=== PATIENT | male | born 1980 | race Caucasian/White ===

== ENCOUNTER 2020-02-10 21:07 | Inpatient (IN) | payer OTHER, SELFPAY ==
[2020-02-10 21:31] VITALS: BMI 36.2
[2020-02-10] MEDS: clonazePAM 1 MG TABLET PO (22:22)
[2020-02-10] MEDS: Ziprasidone 80 MG CAPSULE 160 MG PO (23:14)
[2020-02-10] MEDS: OLANZapine 5 MG TABLET PO (23:16)
[2020-02-11] MEDS: OLANZapine 5 MG TABLET PO (00:01)
[2020-02-11 06:05] VITALS: BP 130/81; PULSE 100; RESP 18; TEMP 35.9; O2SAT 97
[2020-02-11] MEDS: oxyCODONE HCl Immed Release 5 MG TABLET 10 MG PO ×2 (06:23→14:11)
[2020-02-11] MEDS: Acetaminophen 325 MG TABLET 650 MG PO ×2 (06:23→14:11)
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
[2020-02-11 07:00] VITALS: BMI 36.1
[2020-02-11 08:25] LABS: MANUAL DIFF FLAG NO
[2020-02-11 08:31] LABS: Basophils Percent Auto 0.2 % (0-2); Eosinophils Absolute Auto 0.4 X10*3/uL (0.0-0.4); Eosinophils Percent Auto 5.1 % (0-4); Hematocrit 40.7 % (42-52); Hemoglobin 14.6 g/dl (14.0-18.0); Imm Gran Abs Auto 0.02 X10*3/uL (0.00-0.03); Imm Gran Pct Auto 0.2 % (0.0-0.4); Lymphocytes Absolute Auto 2.9 X10*3/uL (1.2-4.9); Lymphocytes Percent Auto 34.8 % (20-40); Mean Corpuscular HGB Conc 35.9 g/dl (31.0-36.0); Mean Corpuscular Hemoglobin 30.6 pg (27.0-33.0); Mean Corpuscular Volume 85.3 fL (80-98); Mean Platelet Volume 9.7 fL (9.4-12.4); Monocytes Absolute Auto 0.8 X10*3/uL (0.1-1.2); Monocytes Percent Auto 8.9 % (2-11); Neutrophils Absolute Auto 4.3 X10*3/uL (2.0-8.3); Neutrophils Percent Auto 50.8 % (45-73); Platelet Count 251 X10*3/uL (160-400); Red Blood Count 4.77 X10*6/uL (4.60-5.80); Red Cell Distribution Width 12.2 % (11.0-16.0); White Blood Count 8.4 X10*3/uL (4.8-10.8)
[2020-02-11 08:56] LABS: Alanine Aminotransferase 37 U/L (0-40); Albumin Level 4.2 g/dL (3.5-5.0); Alkaline Phosphatase 50 U/L (39-117); Anion Gap 14 (12-20); Aspartate Amino Transferase 17 U/L (5-37); Bilirubin Total 0.5 mg/dL (0.0-1.0); Blood Urea Nitrogen 12 mg/dL (9-16); Calcium 8.9 mg/dL (8.4-10.2); Carbon Dioxide 25 mmol/L (22-29); Chloride 106 mmol/L (96-108); Cholesterol 156 mg/dL; Creatinine Clr Calc Pharmacy 166.5; Estimated Glomerular Filt Rate > 60; Glucose Fasting 102 mg/dL (60-99); HDL Cholesterol 29 mg/dL; LDL Cholesterol Calculated 65 mg/dl; Potassium 4.5 mmol/l (3.3-5.1); Sodium 140 mmol/L (135-145); Total Protein 6.9 g/dL (6.5-8.0); Triglycerides 310 mg/dL
[2020-02-11] MEDS: clonazePAM 1 MG TABLET PO ×3 (09:05→22:46)
[2020-02-11] MEDS: Nicotine 14 MG PATCH.TD24 TRANSDERMA (09:06)
--- NOTE | 2020-02-11 10:00 | ECG_ITS ---
Test Reason : QTC PROLONGATION Blood Pressure : / mmHG Vent. Rate : 081 BPM Atrial Rate : 081 BPM P-R Int : 168 ms QRS Dur : 090 ms QT Int : 358 ms P-R-T Axes : 027 063 015 degrees QTc Int : 415 ms Normal sinus rhythm Normal ECG No previous ECGs available Referred By: Francesco Pan Electronically Signed By:IRISH BARBA MD
[2020-02-11] MEDS: Lithium Carbonate ER 450 MG TABLET.ER PO ×2 (11:34→23:00)
--- NOTE | 2020-02-11 13:44 | P.CONIM_ITS ---
History of Present Illness Data of Consult Service Date: 02/11/20 Requesting physician: Elizabeth Healy Primary Care Provider: Unknown Physician HPI Reason for consult: direct admit from [facility] this is a 40-year-old male with history of bipolar disorder who was admitted from [facility] due to increasing manic symptoms. The hospitalists were asked to see him for routine consultation. He has self- reported fibromyalgia, rheumatoid arthritis, ankylosing spondylitis, de generative disc disease and associated widespread chronic pain. He is unhappy with his PCPs management of his chronic pain. he is hoping to switch PCPs. He is hoping to have his narcotic dose increased. He has no other specific complaints. Review of Systems Review of Systems: Yes all other systems are reviewed and are negative Constitutional: Constitutional: Denies chills and Denies fever(s) Cardiovascular: Cardiovascular: Denies chest pain Respiratory: Respiratory: Denies cough Gastrointestinal: Gastrointestinal: Denies abdominal pain [facility] Medical History (Updated 02/11/20 @ 13:50 by SHAHID Vasques) Alcohol use disorder, moderate, in sustained remission Bipolar disorder Chronic back pain History of femur fracture Functional capacity: independent ambulation Pertinent family history: denies CAD, stroke Surgical History (Updated 02/11/20 @ 13:50 by SHAHID Vasques) H/O shoulder surgery Social History (Updated 02/11/20 @ 13:50 by SHAHID Vasques) Household Members: Spouse and Children Housing: Apartment Do you presently have visiting nurse or other home services: No Alcohol intake: former Smoking Status: Current every day smoker Tobacco Type: Cigarette Packs Per Day: 1 Cigarettes Per Day: 20.0 Smoked in Last 30 Days: Yes Patient Interested in Nicotine Replacement: Yes Patient Given Instructions on How to Stop Smoking: Yes Date Education Initiated: 02/10/20 Second Hand Smoke Exposure: No Use of substances other than those prescribed or required for medical reasons: No Currently Displaying Signs/Symptoms of Drug Intoxication Withdrawal: No Have you been hit, kicked, punched, or otherwise hurt by someone within the past year? If so, by whom?: No Do you feel safe in your current relationship?: Yes Is there a partner from a previous relationship who is making you feel unsafe now?: No Are you made to feel afraid or neglected: No Advance Directives: No Advance Directives Information Provided: Yes Advance Directives on File: No Do you have thoughts of harming others: None Do you have a plan to hurt others: No Plan Recently lost weight without trying: No Meds Allergies Allergy/AdvReac Type Severity Reaction Status Date / Time No Known Allergies Allergy Verified 02/10/20 21:33 Home Medications Medication Instructions Recorded Confirmed Type clonazepam 1 mg PO TID 02/10/20 02/10/20 History fenofibrate nanocrystallized 145 mg PO DAILY 02/10/20 02/10/20 History oxycodone 10 mg PO BID PRN 02/10/20 02/10/20 History ziprasidone HCl [Geodon] 160 mg PO BEDTIME 02/10/20 02/10/20 History Physical Exam Vital Signs and Narrative: Vital Signs: Last Vital Signs Temp 96.7 F L 02/11/20 06:05 Pulse 100 02/11/20 06:05 Resp 18 02/11/20 06:05 BP 130/81 02/11/20 06:05 Pulse Ox 97 02/11/20 06:05 Body Mass Index 36.1 Const: Nutritional Appearance: well nourished Orientation/consciousness: patient oriented x3 HENMT: Head: Yes normocephalic and Yes atraumatic Eyes: Sclerae: sclerae normal Chest: Chest palpation & inspection: normal inspection of the chest Resp: Effort & Inspection: normal respiratory effort and no respiratory distress Auscultation: clear to auscultation bilaterally Cardio: Rate: regular rate Rhythm: regular rhythm GI: Palpation (GI): Soft to palpation and nontender Skin: General skin exam: no rashes or lesions noted Neuro: General: patient oriented x3 Cranial nerves: Yes CN's II-XII intact bilaterally and Yes Bilaterally intact EOM present Extrem: General: Yes normal to inspection Results Labs CBC and Chem 7: 02/11/20 08:01 02/11/20 08:01 Labs: Laboratory Results - last 24 hr 02/11/20 02/11/20 08:01 08:01 MCV 85.3 MCH 30.6 MCHC 35.9 RDW 12.2 Plt Count 251 MPV 9.7 Immature Gran % (Auto) 0.2 Neut % (Auto) 50.8 Lymph % (Auto) 34.8 [place] % (Auto) 8.9 Eos % (Auto) 5.1 H Baso % (Auto) 0.2 Lymph # (Auto) 2.9 [place] # (Auto) 0.8 Eos # (Auto) 0.4 Baso # (Auto) 0.0 Abs Immat Gran (auto) 0.02 Absolute Neuts (auto) 4.3 Absolute Nucleated RBC 0.000 Nucleated RBC % (auto) 0.0 Anion Gap 14 Estim Creat Clear Calc 166.5 Estimated GFR > 60 Fasting Glucose 102 H Calcium 8.9 Total Bilirubin 0.5 AST 17 ALT 37 Alkaline Phosphatase 50 Total Protein 6.9 Albumin 4.2 Triglycerides 310 Cholesterol 156 LDL Cholesterol, Calc 65 HDL Cholesterol 29 TSH 2.20 Assessment and Plan (1) Bipolar I disorder with stan: Status: Acute this is a 40-year-old male with history of bipolar disorder admitted to for management of increasing stan HLD Patient reports outpatient lipid profile had improved and PCP discontinued fenofibrate chronic pain continue home dose of oxycodone there are no acute medical conditions at this time. Thank you for allowing us to participate in the care of this patient. this case was discussed with Dr. Reveles
[2020-02-11 18:00] VITALS: BP 166/86; PULSE 99; TEMP 36.1
[2020-02-11] MEDS: Ziprasidone 80 MG CAPSULE 160 MG PO (23:00)
[2020-02-12] MEDS: oxyCODONE HCl Immed Release 5 MG TABLET 10 MG PO ×2 (04:40→12:07)
[2020-02-12] MEDS: Acetaminophen 325 MG TABLET 650 MG PO ×2 (04:43→12:07)
[2020-02-12 05:00] VITALS: BP 149/69; PULSE 96; RESP 18; TEMP 36.6; O2SAT 97
[2020-02-12] MEDS: Nicotine Polacrilex 2 MG GUM 4 MG BUCCAL (05:29)
--- NOTE | 2020-02-12 06:21 | P.PNPSI_ITS ---
Subjective Subjective Date of Service: 02/12/20 Reason For Visit: Bipolar Subjective Notes: Conditional Voluntary Interim History: Remains hypomanic. High energy. Talkative. Some talk but in beh control and med compliant. Ct [employer] Loading. Overoptimistic meds are working great Medication Compliance: Yes Side effects from medications: No Attending Groups: Yes Review of Systems Review of Systems Yes all other systems are reviewed and are negative Mental Status Exam Mental Status Exam Patient Appearance: Appropriate Patient Orientation: Person, Place, Time and Situation Level of Consciousness: Awake Patient Behavior: Talkative, Cooperative and Restless Mood Description: Elated Affect Description: Hostile, Anxious and Expansive Ability to Follow Directions: Excellent Speech Pattern: Rambling and Pressured Memory Description: Intact Diagnostics Vital Signs (24Hr): Vital Signs - 24 hr 02/11/20 18:00 Temperature 96.9 F Pulse Rate 99 Blood Pressure 166/86 H Body Mass Index 36.1 Labs Results: 02/11/20 08:01 02/11/20 08:01 Labs: Laboratory Results - last 48 hr 02/11/20 02/11/20 08:01 08:01 WBC 8.4 RBC 4.77 Hgb 14.6 Hct 40.7 L MCV 85.3 MCH 30.6 MCHC 35.9 RDW 12.2 Plt Count 251 MPV 9.7 Immature Gran % (Auto) 0.2 Neut % (Auto) 50.8 Lymph % (Auto) 34.8 [place] % (Auto) 8.9 Eos % (Auto) 5.1 H Baso % (Auto) 0.2 Lymph # (Auto) 2.9 [place] # (Auto) 0.8 Eos # (Auto) 0.4 Baso # (Auto) 0.0 Abs Immat Gran (auto) 0.02 Absolute Neuts (auto) 4.3 Absolute Nucleated RBC 0.000 Nucleated RBC % (auto) 0.0 Sodium 140 Potassium 4.5 Chloride 106 Carbon Dioxide 25 Anion Gap 14 BUN 12 Creatinine 0.74 Estim Creat Clear Calc 166.5 Estimated GFR > 60 Fasting Glucose 102 H Calcium 8.9 Total Bilirubin 0.5 AST 17 ALT 37 Alkaline Phosphatase 50 Total Protein 6.9 Albumin 4.2 Triglycerides 310 Cholesterol 156 LDL Cholesterol, Calc 65 HDL Cholesterol 29 TSH 2.20 Medications Medications Current Medications Generic Name Dose Route Start Last Admin Trade Name Freq PRN Reason Stop Dose Admin Acetaminophen 650 mg 02/10/20 21:44 02/12/20 04:43 Acetaminophen 325 Mg Tablet PO 650 mg Q6H PRN Administration Headache/Pain Mild Scale (1-3) Al Hydroxide/Mg Hydroxide 30 ml 02/10/20 21:44 Magnesium Hydrox/Alum Hydrox 30 Ml Oral.Susp PO Q6H PRN Heartburn/Nausea Clonazepam 1 mg 02/10/20 21:55 02/11/20 22:46 Clonazepam 1 Mg Tablet PO 1 mg TID ANGELICA Administration Fenofibrate 134 mg 02/10/20 22:05 02/11/20 23:03 Fenofibrate,Micronized 134 Mg Capsule PO Not Given BEDTIME ANGELICA Hydroxyzine HCl 25 mg 02/10/20 21:54 Hydroxyzine Hcl 25 Mg Tablet PO BEDTIME MRX1 PRN Insomnia [employer] Carbonate 450 mg 02/11/20 10:40 02/11/20 23:00 [employer] Carbonate Er 450 Mg Tablet.Er PO 450 mg BID ANGELICA Administration Magnesium Hydroxide 30 ml 02/10/20 21:44 Milk Of Magnesia 30 Ml Oral.Susp PO DAILY PRN Constipation Nicotine 14 mg 02/11/20 09:00 02/11/20 09:06 Nicotine 14 Mg Patch.Td24 TRANSDERMA 14 mg DAILY ANGELICA Administration Nicotine Polacrilex 4 mg 02/10/20 21:44 02/12/20 05:29 Nicotine Polacrilex 2 Mg Gum BUCCAL 4 mg Q2H PRN Administration Nicotine Cravings Olanzapine 5 mg 02/10/20 22:01 02/11/20 00:01 Olanzapine 5 Mg Tablet PO 5 mg BEDTIME MRX1 PRN Administration insomnia Oxycodone HCl 10 mg 02/10/20 21:50 02/12/20 04:40 Oxycodone Hcl Immed Release 5 Mg Tablet PO 10 mg BID PRN Administration Pain Ziprasidone 160 mg 02/10/20 21:55 02/11/20 23:00 Ziprasidone 80 Mg Capsule PO 160 mg BEDTIME ANGELICA Administration Allergies Allergies Allergy/AdvReac Type Severity Reaction Status Date / Time No Known Allergies Allergy Verified 02/10/20 21:33 Assessment & Plan Assessment & Plan (1) Bipolar I disorder with stan: Status: Acute Code(s): F31.10 - Bipolar disorder, current episode manic without psychotic features, u nspecified Assessment and Plan: this is a 40-year-old male with history of bipolar disorder admitted to M5 for management of increasing stan HLD Patient reports outpatient lipid profile had improved and PCP discontinued fenofibrate chronic pain continue home dose of oxycodone there are no acute medical conditions at this time. Thank you for allowing us to participate in the care of this patient. this case was discussed with Dr. Reveles Greater than 50% of the session was spent on counseling and/or coordination of care Ct meds. [employer]/Geodon
[2020-02-12] MEDS: Lithium Carbonate ER 450 MG TABLET.ER PO ×2 (08:29→22:00)
[2020-02-12] MEDS: Nicotine 14 MG PATCH.TD24 TRANSDERMA (08:29)
[2020-02-12] MEDS: clonazePAM 1 MG TABLET PO ×3 (08:29→20:54)
[2020-02-12 18:00] VITALS: BP 119/59; PULSE 92; TEMP 36.9
[2020-02-12] MEDS: Ziprasidone 80 MG CAPSULE 160 MG PO (22:00)
[2020-02-12] MEDS: OLANZapine 5 MG TABLET PO (23:14)
[2020-02-13] MEDS: oxyCODONE HCl Immed Release 5 MG TABLET 10 MG PO ×2 (00:33→08:46)
[2020-02-13] MEDS: Acetaminophen 325 MG TABLET 650 MG PO ×3 (00:35→22:07)
[2020-02-13 06:00] VITALS: BP 130/73; PULSE 104; TEMP 36.2; O2SAT 98
[2020-02-13] MEDS: clonazePAM 1 MG TABLET PO ×3 (08:22→20:41)
[2020-02-13] MEDS: Nicotine 14 MG PATCH.TD24 TRANSDERMA (08:22)
[2020-02-13] MEDS: Lithium Carbonate ER 450 MG TABLET.ER PO ×2 (10:25→22:08)
--- NOTE | 2020-02-13 10:53 | P.PNPSI_ITS ---
Subjective Subjective Date of Service: 02/13/20 Reason For Visit: Bipolar Subjective Notes: Conditional Voluntary Interim History: Pt reports continued problem with waking up from sleep due to back pain upset about only having 2 doses per day / oxy Medication Compliance: Yes Side effects from medications: No Attending Groups: Yes Review of Systems Acute medical concerns: Yes ongoing back pain =- chronic Medical Review of Systems: unchanged Review of Systems Constitutional: Reports no additional constitutional complaints Mental Status Exam Mental Status Exam Patient Appearance: Well Grooomed and Appropriate Patient Orientation: Person, Place, Time and Situation Level of Consciousness: Awake Patient Behavior: Appropriate Behavior Comments: some iriritability , yells when annoyed in room, upset about level of agita on unit and feeling mad that he is still on unit when he could have been home. Mood Description: Angry (some irritability ) Affect Description: Labile (mildly) Patient Cognition Impaired: No Ability to Follow Directions: Good Speech Pattern: Clear Memory Description: Intact Hallucinations: None Thought Process: Intact and Goal Oriented Thought Content: positive for Intact Abnormal Motor Activity Signs and Symptoms: Agitation (mild) Judgement: Fair Diagnostics Vital Signs (24Hr): Vital Signs - 24 hr 02/12/20 18:00 02/13/20 06:00 Temperature 98.4 F 97.1 F Pulse Rate 92 104 H Blood Pressure 119/59 L 130/73 Pulse Oximetry 98 Body Mass Index 36.1 Labs Results: 02/11/20 08:01 02/11/20 08:01 Medications Medications Current Medications Generic Name Dose Route Start Last Admin Trade Name Freq PRN Reason Stop Dose Admin Acetaminophen 650 mg 02/10/20 21:44 02/13/20 08:46 Acetaminophen 325 Mg Tablet PO 650 mg Q6H PRN Administration Headache/Pain Mild Scale (1-3) Al Hydroxide/Mg Hydroxide 30 ml 02/10/20 21:44 Magnesium Hydrox/Alum Hydrox 30 Ml Oral.Susp PO Q6H PRN Heartburn/Nausea Clonazepam 1 mg 02/10/20 21:55 02/13/20 08:22 Clonazepam 1 Mg Tablet PO 1 mg TID ANGELICA Administration Fenofibrate 134 mg 02/10/20 22:05 02/12/20 22:02 Fenofibrate,Micronized 134 Mg Capsule PO Not Given BEDTIME ANGELICA Hydroxyzine HCl 25 mg 02/10/20 21:54 Hydroxyzine Hcl 25 Mg Tablet PO BEDTIME MRX1 PRN Insomnia [place] Carbonate 450 mg 02/11/20 10:40 02/13/20 10:25 [place] Carbonate Er 450 Mg Tablet.Er PO 450 mg BID ANGELICA Administration Magnesium Hydroxide 30 ml 02/10/20 21:44 Milk Of Magnesia 30 Ml Oral.Susp PO DAILY PRN Constipation Nicotine 14 mg 02/11/20 09:00 02/13/20 08:22 Nicotine 14 Mg Patch.Td24 TRANSDERMA 14 mg DAILY ANGELICA Administration Nicotine Polacrilex 4 mg 02/10/20 21:44 02/12/20 05:29 Nicotine Polacrilex 2 Mg Gum BUCCAL 4 mg Q2H PRN Administration Nicotine Cravings Olanzapine 5 mg 02/10/20 22:01 02/12/20 23:14 Olanzapine 5 Mg Tablet PO 5 mg BEDTIME MRX1 PRN Administration insomnia Oxycodone HCl 10 mg 02/10/20 21:50 02/13/20 08:46 Oxycodone Hcl Immed Release 5 Mg Tablet PO 10 mg BID PRN Administration Pain Ziprasidone 160 mg 02/10/20 21:55 02/12/20 22:00 Ziprasidone 80 Mg Capsule PO 160 mg BEDTIME ANGELICA Administration Allergies Allergies Allergy/AdvReac Type Severity Reaction Status Date / Time No Known Allergies Allergy Verified 02/10/20 21:33 Assessment & Plan Assessment & Plan (1) Alcohol use disorder, moderate, in sustained remission: Status: Acute Code(s): F10.21 - Alcohol dependence, in remission Assessment and Plan: continues on clonazepam (2) Bipolar I disorder with stan: Status: Acute Code(s): F31.10 - Bipolar disorder, current episode manic without psychotic features, unspecified Assessment and Plan: feels current medications are helping well with this Greater than 50% of the session was spent on counseling and/or coordination of care
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
[2020-02-13 18:00] VITALS: BP 146/66; PULSE 102; TEMP 36.7
[2020-02-13] MEDS: Ziprasidone 80 MG CAPSULE 160 MG PO (22:08)
[2020-02-14] MEDS: oxyCODONE HCl Immed Release 5 MG TABLET 10 MG PO ×2 (00:38→08:37)
[2020-02-14 06:00] VITALS: BP 136/64; PULSE 103; TEMP 36.6
[2020-02-14] MEDS: clonazePAM 1 MG TABLET PO ×3 (07:04→20:20)
[2020-02-14] MEDS: Nicotine 14 MG PATCH.TD24 TRANSDERMA (07:04)
[2020-02-14 08:20] LABS: Lithium 0.39 mmol/L (0.60-1.20)
[2020-02-14] MEDS: Acetaminophen 325 MG TABLET 650 MG PO (08:36)
[2020-02-14] MEDS: Lithium Carbonate ER 450 MG TABLET.ER PO (11:17)
--- NOTE | 2020-02-14 11:34 | P.PNPSI_ITS ---
Subjective Subjective Date of Service: 02/14/20 Reason For Visit: Bipolar Subjective Notes: Conditional Voluntary Interim History: Pt feels great despite blow up yesterday about another pt who is staring at him feels he is on right meds and doing what he is being told looking to dc tomorrow ongoing complaint of back pain Medication Compliance: Yes Side effects from medications: No Attending Groups: Yes Review of Systems Acute medical concerns: No Medical Review of Systems: unchanged Review of Systems: ongoing back pain - chronic not new Mental Status Exam Mental Status Exam Patient Appearance: Well Grooomed and Appropriate Patient Orientation: Person, Place, Time and Situation Level of Consciousness: Awake Patient Behavior: Appropriate Behavior Comments: some iriritability , yells when annoyed in room, upset about level of agita on unit and feeling mad that he is still on unit when he could have been home. Mood Description: Angry (some irritability ) Affect Description: Labile (mildly) Patient Cognition Impaired: No Ability to Follow Directions: Good Speech Pattern: Clear Memory Description: Intact Hallucinations: None Thought Process: Intact and Goal Oriented Thought Content: positive for Intact Abnormal Motor Activity Signs and Symptoms: Agitation (mild) Judgement: Fair Diagnostics Vital Signs (24Hr): Vital Signs - 24 hr 02/13/20 18:00 02/14/20 06:00 Temperature 98.1 F 97.8 F Pulse Rate 102 H 103 H Blood Pressure 146/66 H 136/64 Body Mass Index 36.1 Labs Results: 02/11/20 08:01 02/11/20 08:01 Labs: Laboratory Results - last 48 hr 02/14/20 07:56 [place] 0.39 L lithium lvl is low but just restarted - may need higher dose or may need to recheck lithium lvl on dc Medications Medications Current Medications Generic Name Dose Route Start Last Admin Trade Name Freq PRN Reason Stop Dose Admin Acetaminophen 650 mg 02/10/20 21:44 02/14/20 08:36 Acetaminophen 325 Mg Tablet PO 650 mg Q6H PRN Administration Headache/Pain Mild Scale (1-3) Al Hydroxide/Mg Hydroxide 30 ml 02/10/20 21:44 Magnesium Hydrox/Alum Hydrox 30 Ml Oral.Susp PO Q6H PRN Heartburn/Nausea Clonazepam 1 mg 02/10/20 21:55 02/14/20 07:04 Clonazepam 1 Mg Tablet PO 1 mg TID ANGELICA Administration Fenofibrate 134 mg 02/10/20 22:05 02/13/20 22:09 Fenofibrate,Micronized 134 Mg Capsule PO Not Given BEDTIME ANGELICA Hydroxyzine HCl 25 mg 02/10/20 21:54 Hydroxyzine Hcl 25 Mg Tablet PO BEDTIME MRX1 PRN Insomnia [place] Carbonate 450 mg 02/11/20 10:40 02/14/20 11:17 [place] Carbonate Er 450 Mg Tablet.Er PO 450 mg BID ANGELICA Administration Magnesium Hydroxide 30 ml 02/10/20 21:44 Milk Of Magnesia 30 Ml Oral.Susp PO DAILY PRN Constipation Nicotine 14 mg 02/11/20 09:00 02/14/20 07:04 Nicotine 14 Mg Patch.Td24 TRANSDERMA 14 mg DAILY ANGELICA Administration Nicotine Polacrilex 4 mg 02/10/20 21:44 02/12/20 05:29 Nicotine Polacrilex 2 Mg Gum BUCCAL 4 mg Q2H PRN Administration Nicotine Cravings Olanzapine 5 mg 02/10/20 22:01 02/12/20 23:14 Olanzapine 5 Mg Tablet PO 5 mg BEDTIME MRX1 PRN Administration insomnia Oxycodone HCl 10 mg 02/10/20 21:50 02/14/20 08:37 Oxycodone Hcl Immed Release 5 Mg Tablet PO 10 mg BID PRN Administration Pain Ziprasidone 160 mg 02/10/20 21:55 02/13/20 22:08 Ziprasidone 80 Mg Capsule PO 160 mg BEDTIME ANGELICA Administration Allergies Allergies Allergy/AdvReac Type Severity Reaction Status Date / Time No Known Allergies Allergy Verified 02/10/20 21:33 Assessment & Plan Assessment & Plan (1) Bipolar I disorder with stan: Status: Acute Code(s): F31.10 - Bipolar disorder, current episode manic without psychotic features, unspecified Assessment and Plan: more stable for most part, there have been alot of agitated patients on unit- feels certain patients don't like him- vs are having their own psychiatric problems Greater than 50% of the session was spent on counseling and/or coordination of care
[2020-02-14 18:00] VITALS: BP 142/73; PULSE 88
--- NOTE | 2020-02-14 23:37 | PC.NURSE ---
Patient decided he did not want to take his HS medications because he was asked to wait while other patients were given theirs. This magazine writer went to patient's room to offer meds and he refused them. He had taken his Clonopin early.
[2020-02-15] MEDS: Ziprasidone 80 MG CAPSULE 160 MG PO (00:32)
[2020-02-15] MEDS: Lithium Carbonate ER 450 MG TABLET.ER PO (00:33)
[2020-02-15] MEDS: oxyCODONE HCl Immed Release 5 MG TABLET 10 MG PO ×2 (00:34→08:57)
[2020-02-15] MEDS: Acetaminophen 325 MG TABLET 650 MG PO ×2 (01:24→08:56)
[2020-02-15 06:00] VITALS: BP 132/64; PULSE 86; TEMP 36.6
--- NOTE | 2020-02-15 06:43 | P.PNPSI_ITS ---
Subjective Subjective Date of Service: 02/15/20 Reason For Visit: Bipolar Diagnostics Vital Signs (24Hr): Vital Signs - 24 hr 02/14/20 18:00 Pulse Rate 88 Blood Pressure 142/73 H Body Mass Index 36.1 Labs Results: 02/11/20 08:01 02/11/20 08:01 Labs: Laboratory Results - last 48 hr 02/14/20 07:56 [place] 0.39 L Medications Medications Current Medications Generic Name Dose Route Start Last Admin Trade Name Freq PRN Reason Stop Dose Admin Acetaminophen 650 mg 02/10/20 21:44 02/15/20 01:24 Acetaminophen 325 Mg Tablet PO 650 mg Q6H PRN Administration Headache/Pain Mild Scale (1-3) Al Hydroxide/Mg Hydroxide 30 ml 02/10/20 21:44 Magnesium Hydrox/Alum Hydrox 30 Ml Oral.Susp PO Q6H PRN Heartburn/Nausea Clonazepam 1 mg 02/10/20 21:55 02/14/20 20:20 Clonazepam 1 Mg Tablet PO 1 mg TID ANGELICA Administration Fenofibrate 134 mg 02/10/20 22:05 02/14/20 22:56 Fenofibrate,Micronized 134 Mg Capsule PO Not Given BEDTIME ANGELICA Hydroxyzine HCl 25 mg 02/10/20 21:54 Hydroxyzine Hcl 25 Mg Tablet PO BEDTIME MRX1 PRN Insomnia [place] Carbonate 450 mg 02/11/20 10:40 02/15/20 00:33 [place] Carbonate Er 450 Mg Tablet.Er PO 450 mg BID ANGELICA Administration Magnesium Hydroxide 30 ml 02/10/20 21:44 Milk Of Magnesia 30 Ml Oral.Susp PO DAILY PRN Constipation Nicotine 14 mg 02/11/20 09:00 02/14/20 07:04 Nicotine 14 Mg Patch.Td24 TRANSDERMA 14 mg DAILY ANGELICA Administration Nicotine Polacrilex 4 mg 02/10/20 21:44 02/12/20 05:29 Nicotine Polacrilex 2 Mg Gum BUCCAL 4 mg Q2H PRN Administration Nicotine Cravings Olanzapine 5 mg 02/10/20 22:01 02/12/20 23:14 Olanzapine 5 Mg Tablet PO 5 mg BEDTIME MRX1 PRN Administration insomnia Oxycodone HCl 10 mg 02/10/20 21:50 02/15/20 00:34 Oxycodone Hcl Immed Release 5 Mg Tablet PO 10 mg BID PRN Administration Pain Ziprasidone 160 mg 02/10/20 21:55 02/15/20 00:32 Ziprasidone 80 Mg Capsule PO 160 mg BEDTIME ANGELICA Administration Allergies Allergies Allergy/AdvReac Type Severity Reaction Status Date / Time No Known Allergies Allergy Verified 02/10/20 21:33 Assessment & Plan Greater than 50% of the session was spent on counseling and/or coordination of care
[2020-02-15] MEDS: Nicotine 14 MG PATCH.TD24 TRANSDERMA (08:58)
[2020-02-15] MEDS: clonazePAM 1 MG TABLET PO (11:49)
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
== END 2020-02-15 15:50 | disposition home or self-care (01) | DRG 753 ==
PROVIDERS: Admitting Provider Psychiatry & Neurology Psychiatry; Visit Provider Psychiatry & Neurology Psychiatry
DX: F31.10 Bipolar disorder, current episode manic without psychotic features, unspecified (principal); R45.850 Homicidal ideations; F10.21 Alcohol dependence, in remission; F17.210 Nicotine dependence, cigarettes, uncomplicated; Z71.6 Tobacco abuse counseling; G89.29 Other chronic pain; M54.9 Dorsalgia, unspecified; Z79.891 Long term (current) use of opiate analgesic; Z79.899 Other long term (current) drug therapy
CPT/HCPCS: 36415; 80053; 80061; 80178; 84443; 85025; 93005; 99223; 99232; 99239